=== PATIENT | male | born 1950 | race African-American/Black ===

== ENCOUNTER 2021-08-24 11:56 | Observation (INO) | payer OTHER ==
[2021-08-24] MEDS ORDERED: LIDOCAINE 5% TOPICAL PATCH TP ONE (13:02)
[2021-08-24] MEDS ORDERED: LIDOCAINE 5% TOPICAL PATCH ONE (13:11)
[2021-08-24 13:29] LABS: HEMATOCRIT 35.7 % (35.4-49); MCH 31.1 pg (25.7-33.7); MCHC 33.6 g/dl (32.0-35.9); MEAN CELL VOLUME 92.8 fl (80-96); MEAN PLT VOLUME 7.9 fl (7.5-11.1); PLATELET COUNT 244 10^3/uL (134-434); RBC 3.85 M/mm3 (4.00-5.60); RDW 14.2 % (11.9-15.9); WHITE BLOOD COUNT 7.1 K/mm3 (4.0-10.0)
[2021-08-24 13:57] LABS: CALCIUM 9.2 mg/dL (8.5-10.1)
[2021-08-24 13:58] LABS: ALBUMIN 3.4 g/dl (3.4-5.0); BLOOD UREA NITROGEN 11.4 mg/dL (7-18); MAGNESIUM 2.2 mg/dL (1.8-2.4)
[2021-08-24 14:01] LABS: CREATININE 0.8 mg/dL (0.55-1.3); PHOSPHOROUS 3.2 mg/dL (2.5-4.9)
[2021-08-24 14:02] LABS: TOT PROT 10.3 g/dl (6.4-8.2)
[2021-08-24 14:03] LABS: BILIRUBIN,TOTAL 0.4 mg/dL (0.2-1)
[2021-08-24] MEDS ORDERED: KETOROLAC TROMETHAMINE 30 MG/1 ML VIAL IVPUSH ONE (14:48)
[2021-08-24 14:53] LABS: ANISOCYTOSIS 1+; MACROCYTOSIS 1+
[2021-08-24] MEDS ORDERED: ASPIRIN 325 MG TABLET PO ONE (15:16)
[2021-08-24] MEDS ORDERED: KETOROLAC TROMETHAMINE 30 MG/1 ML VIAL ONE (15:19)
[2021-08-24] MEDS ORDERED: ASPIRIN 81 MG CHEWABLE TABLETS ONE (15:19)
[2021-08-24 16:05] LABS: URINE APPEARANCE CLEAR; URINE BILIRUBIN NEGATIVE (NEGATIVE); URINE COLOR YELLOW; URINE GLUCOSE (UA) NEGATIVE (NEGATIVE); URINE KETONE NEGATIVE (NEGATIVE); URINE LEUK ESTERASE NEGATIVE (NEGATIVE); URINE NITRITE NEGATIVE (NEGATIVE); URINE PROTEIN NEGATIVE (NEGATIVE); URINE UROBILINOGEN 0.2 mg/dL (0.2-1.0)
[2021-08-24] MEDS ORDERED: LIDOCAINE PATCH REMOVAL MC SCH (22:00)
[2021-08-24 22:52] VITALS: BMI 25.2
[2021-08-25 09:37] LABS: HEMATOCRIT 34.9 % (35.4-49); HEMOGLOBIN 11.9 GM/dL (11.7-16.9); MCH 31.4 pg (25.7-33.7); MCHC 34.2 g/dl (32.0-35.9); MEAN CELL VOLUME 91.7 fl (80-96); MEAN PLT VOLUME 7.6 fl (7.5-11.1); PLATELET COUNT 213 10^3/uL (134-434); RDW 13.9 % (11.9-15.9); WHITE BLOOD COUNT 6.8 K/mm3 (4.0-10.0)
[2021-08-25] MEDS ORDERED: ENOXAPARIN NA (PORCINE) 40 MG/0.4 ML DISP.SYRIN SQ SCH (10:00)
[2021-08-25] MEDS ORDERED: SULFAMETHOXAZOLE/TRIMETHOPRIM 800MG/160MG D.S. TABLET PO SCH (10:00)
[2021-08-25] MEDS ORDERED: BICTEGRAV/EMTRICIT/TENOFOV (BIKTARVY) 50-200-25 MG TABLET PO SCH (10:00)
[2021-08-25 10:02] LABS: CALCIUM 9.1 mg/dL (8.5-10.1)
[2021-08-25 10:03] LABS: ALBUMIN 2.9 g/dl (3.4-5.0); BLOOD UREA NITROGEN 11.4 mg/dL (7-18)
[2021-08-25 10:06] LABS: CREATININE 0.8 mg/dL (0.55-1.3)
[2021-08-25 10:07] LABS: BILIRUBIN,TOTAL 0.4 mg/dL (0.2-1); TOT PROT 9.4 g/dl (6.4-8.2)
[2021-08-25] MEDS: INSULIN SLIDING SCALE (NOVOLOG) 1 VIAL SQ SCH ×3 (12:08→22:15)
[2021-08-25] MEDS: NYSTATIN 500,000 UNITS/5 ML SUSPENSION PO SCH ×2 (12:58→17:11)
[2021-08-25] MEDS ORDERED: ACETAMINOPHEN 325 MG TABLET (FP) PO PRN (16:27)
[2021-08-25] MEDS ORDERED: ATORVASTATIN CA 40 MG TABLET (FP) PO SCH ×2 (22:00)
[2021-08-26] MEDS: NYSTATIN 500,000 UNITS/5 ML SUSPENSION PO SCH ×3 (00:19→11:49)
[2021-08-26] MEDS: INSULIN SLIDING SCALE (NOVOLOG) 1 VIAL SQ SCH ×2 (06:02→11:51)
[2021-08-26 09:33] LABS: HEMATOCRIT 33.7 % (35.4-49); HEMOGLOBIN 11.4 GM/dL (11.7-16.9); MCHC 33.8 g/dl (32.0-35.9); MEAN CELL VOLUME 91.6 fl (80-96); MEAN PLT VOLUME 8.4 fl (7.5-11.1); PLATELET COUNT 219 10^3/uL (134-434); RBC 3.68 M/mm3 (4.00-5.60); RDW 13.9 % (11.9-15.9); WHITE BLOOD COUNT 6.8 K/mm3 (4.0-10.0)
[2021-08-26] MEDS ORDERED: BICTEGRAV/EMTRICIT/TENOFOV (BIKTARVY) 50-200-25 MG TABLET PO SCH (10:00)
[2021-08-26] MEDS ORDERED: ENOXAPARIN NA (PORCINE) 40 MG/0.4 ML DISP.SYRIN SQ SCH (10:00)
[2021-08-26 10:13] LABS: CALCIUM 8.7 mg/dL (8.5-10.1)
[2021-08-26 10:14] LABS: ALBUMIN 2.7 g/dl (3.4-5.0); BLOOD UREA NITROGEN 9.5 mg/dL (7-18)
[2021-08-26 10:17] LABS: CREATININE 0.8 mg/dL (0.55-1.3)
[2021-08-26 10:18] LABS: TOT PROT 8.7 g/dl (6.4-8.2)
[2021-08-26 14:16] VITALS: BP 118/68; PULSE 70; TEMP 97.9
[2021-08-27] MEDS ORDERED: SULFAMETHOXAZOLE/TRIMETHOPRIM 800MG/160MG D.S. TABLET PO SCH (10:00)
== END 2021-08-26 16:22 | disposition home or self-care (01) ==
LOC: JER 11:56 → UNDOADMOB 15:17 → JERBED 15:17 → INTOOBSV 15:17 → JERBED 17:42 → J4S 08-25 01:20 → J5S 08-25 18:19
PROVIDERS: ADMIT Internal Medicine; ATTEND Internal Medicine
PROC: 3E023GC Introduction of Other Therapeutic Substance into Muscle, Percutaneous Approach (ICD-10-PCS; principal; 2021-08-24)
PROC: 3E0333Z Introduction of Anti-inflammatory into Peripheral Vein, Percutaneous Approach (ICD-10-PCS; 2021-08-24)
DX: B20 Human immunodeficiency virus [HIV] disease (principal); E11.9 Type 2 diabetes mellitus without complications; M54.9 Dorsalgia, unspecified; M54.6 Pain in thoracic spine; K86.89 Other specified diseases of pancreas; R79.89 Other specified abnormal findings of blood chemistry; G93.41 Metabolic encephalopathy; E78.00 Pure hypercholesterolemia, unspecified
CPT/HCPCS: 36415; 70450-TC; 71046-TC-FY; 72125-TC; 72128-TC; 72132-TC; 74177-TC; 80053; 80061; 81003; 82962; 83036; 83735; 84100; 84484; 85025; 85027; 87086; 93005; 93010; 96372; 96374; 97116-GP; 97161-GP; 99285-25; C9803; G0378; Q9967; U0003; U0005